=== PATIENT | male | born 1955 | race Asian ===

== ENCOUNTER 2017-02-02 12:31 | Day surgery (SDC) | payer BC ==
[~2017-02-02] VITALS: Ht 165.1 cm; Wt 63.3 kg
[2017-02-02] MEDS ORDERED: omega 3 (14:33)
[2017-02-02] MEDS ORDERED: glucosamine (14:33)
[2017-02-02] MEDS ORDERED: amlodipine besylate (14:33)
[2017-02-02 14:40] VITALS: Ht 165.1 cm; Wt 63.3 kg
[2017-02-02] MEDS ORDERED: MIDAZOLAM 1 MG/ML 2 ML INJ ONE (15:34)
[2017-02-02] MEDS ORDERED: PROPOFOL 20 ML ONE (15:34)
[2017-02-02] MEDS ORDERED: LIDOCAINE 2% (SDV) 5 ML INJ ONE (15:34)
[2017-02-02 15:37] VITALS: BP 162/90; PULSE 79; RESP 22
[2017-02-02 16:26] VITALS: BP 170/89; PULSE 82; RESP 12
--- NOTE | 2017-02-02 17:07 | GILP ---
DATE OF PROCEDURE: 02/02/2017 PROCEDURE: Colonoscopy to cecum. PREMEDICATION: Monitored anesthesia care by anesthesiologist. SURGEON: Aaron Foster MD. INSTRUMENT USED: Olympus colonoscope. PREPARATION: Was adequate. TECHNIQUE: After informed consent, with the patient/relatives understanding the procedure, its indic ations potential risks and complications, including but not limited to: allergic reaction, bleeding, perforation, infection, missed lesions and after all pertinent questions were answered to the patie nt's satisfaction, the patient/relatives signed the witnessed informed consent. Following this, premedication was administered slowly IV push by under careful cardiovascular and re spiratory monitoring with pulse oximetry, automatic blood pressure and private branch exchange operator. Once the sedativ e effect was achieved, the patient was placed in the left lateral decubitus position, digital rectal examination was performed. The colonoscope was then introduced and advanced under visual control th roughout all segments of the colon including: the rectum, sigmoid, descending colon, splenic flexure , transverse colon, hepatic flexure, ascending colon and finally reaching the cecum which was clearl y identified by transillumination, finger indentation and the ileocecal valve. Careful examination o f the mucosa of the lower gastrointestinal tract both on insertion as well as withdrawal of the inst rument disclosed the following findings: Rectal Examination: No evidence of perirectal disease, no masses. Colonic Mucosa: The colonic mucosa is unremarkable with the exception of a few diverticula on the le ft side of the colon with no evidence of complications. The instrument was then withdrawn reexamining the mucosa in detail. No additional abnormalities are noted with the exception of moderate to large internal hemorrhoids. PLAN: The patient will follow up as an outpatient and hemoccult stool test is recommended and scree nan colonoscopy in 10 years is recommended. Dictated By: AARON FOSTER MS/NTS Conf#: [id number] DID#: [id number]
== END 2017-02-02 16:13 | disposition home or self-care (01) ==
LOC: GIL 12:31
PROVIDERS: ATTEND Internal Medicine Gastroenterology
DX: Z12.11 Encounter for screening for malignant neoplasm of colon (principal); K57.90 Diverticulosis of intestine, part unspecified, without perforation or abscess without bleeding; I10 Essential (primary) hypertension; E78.5 Hyperlipidemia, unspecified
CPT/HCPCS: 45378; J2250; Z7610